=== PATIENT | male | born 1980 | race Caucasian/White ===

== ENCOUNTER 2023-08-20 13:36 | Emergency (ER) | payer OTHER, SELFPAY ==
--- NOTE | ~2023-08-20 | CT_ITS ---
EXAMINATION: CT abdomen pelvis w con DATE: 08/20/2023 20:57 INDICATION: Diffuse abdominal pain and pressure TECHNIQUE: Computed tomography (CT) of the abdomen and pelvis was performed without intravenous contr ast. The dose-length product was 1467.60 mGy-cm. Automated exposure control and iterative reconstruct ion technique were employed. COMPARISON: CT dated 09/08/2016. FINDINGS: Lung bases are unremarkable. Heart size normal. No significant pleural or pericardial effus ion. There are cholecystectomy clips. Fatty infiltration of the liver. The spleen, pancreas, adrenal glands and kidneys are unremarkable. Nonobstructive bowel gas pattern. Bladder is decompressed. Colon ic diverticulosis without evidence for diverticulitis. No free air or free fluid. No significant vasc ular abnormality. No lymphadenopathy. No acute osseous abnormality. IMPRESSION: 1. No acute abdominal abnormality. Reviewed, dictated and finalized at location A.
--- NOTE | ~2023-08-20 | XR_ITS ---
EXAMINATION: XR chest 2V 08/20/2023 18:47 INDICATION: Sudden shortness of breath PROCEDURE: 2 view chest COMPARISON: 07/06/2014 FINDINGS: The lungs are clear. The cardiomediastinal silhouette is within normal limits. There are no pleural effusions. There is no pneumothorax suspected. IMPRESSION: 1: NO ACUTE CARDIOPULMONARY DISEASE. Reviewed, dictated and finalized at location A.
[2023-08-20 13:55] VITALS: BP 140/89; PULSE 78; RESP 18; TEMP 36.6; O2SAT 97
[2023-08-20 17:20] VITALS: BP 131/86; PULSE 85; RESP 11; O2SAT 100
--- NOTE | 2023-08-20 18:28 | ECG_ITS ---
Measurements Intervals [place] Rate: 93 P: 51 OK: 149 QRS: -15 QRSD: 95 T: 30 QT: 338 QTc: 421 Interpretive Statements SINUS RHYTHM NONSPECIFIC T-WAVE ABNORMALITY Electronically Signed On 08-21-2023 17:10:56 CDT by Guillermo Zhou M.D.
[2023-08-20 19:35] LABS: Appearance Urine Cloudy (Clear); Bacteria Urine None Seen /hpf; Bilirubin Urine Negative (Negative); Blood Urine Negative (Negative); Color Urine Yellow (Yellow); Glucose Urine UA 3+ mg/dL (Negative); Ketones Urine Trace mg/dL (Negative); Leukocyte Esterase Ur Negative LEU/UL (Negative); Nitrate Urine Negative (Negative); Non Pathogenic Casts 0-2; Protein Urine Negative (Negative); RBC Urine 0-2 /hpf (0-2); Specific Grav Ur 1.019 (1.001-1.035); Squamous Epithelial Cell Urine None seen /hpf (Few); WBC Urine 0-5 /hpf
[2023-08-20] MEDS: BELLADONNA ALK/PHENOB ELIX 10 ML, MAG HYDROX/ALUMINUM HYD/SIMETH 30 ML, LIDOCAINE HCL 2... PO (19:37)
[2023-08-20 19:45] LABS: Add Urine Microscopic? YES
[2023-08-20 19:49] LABS: Basophils Absolute Auto 0.1 K/mm3 (0.0-0.1); Basophils Percent Auto 1.1 % (0.2-1.2); Eosinophils Absolute Auto 0.1 K/mm3 (0-0.3); Eosinophils Percent Auto 1.1 % (0-4.4); Hematocrit 43.2 % (42.0-52.0); Hemoglobin 15.1 g/dL (14.0-18.0); Immature Granulocyte Absolute 0.02 K/mm3 (0.00-0.031); Immature Granulocyte Percent A 0.2 % (0-0.5); Lymphocytes Absolute Auto 1.97 K/mm3 (0.9-3.2); Lymphocytes Percent Auto 22.6 % (18.3-44.2); Mean Corpuscular Volume 85.7 fl (80-100); Mean Platelet Volume 10.3 fl (7.4-10.4); Monocytes Absolute Auto 0.6 K/mm3 (0.1-0.6); Monocytes Percent Auto 7.1 % (2.6-8.5); Neutrophils Absolute Auto 5.9 K/mm3 (1.3-6.7); Neutrophils Percent Auto 67.9 % (45.5-73.1); Platelet Count Result 294 k/mm3 (150-375); Red Blood Count 5.04 M/mm3 (4.6-6.20); Red Cell Distribution Width 12.3 % (11.5-14.5); White Blood Count 8.7 K/mm3 (4.5-10.0)
[2023-08-20 20:00] LABS: Alanine Aminotransferase 42 U/L (6-50); Albumin Level 4.2 g/dL (3.5-5.1); Alkaline Phosphatase 61 U/L (38-126); Anion Gap 10 mmol/L (8-16); Aspartate Amino Transferase 30 U/L (17-59); Bilirubin,Total 1.1 mg/dL (0.2-1.3); Blood Urea Nitrogen 7 mg/dL (9-20); Calcium 8.8 mg/dL (8.4-10.2); Carbon Dioxide 26 mmol/L (22-30); Chloride 99 mmol/L (98-107); Estimated CRCL calculation 152 ml/min; Estimated Glomerular Filt Rate > 60; Glucose 227 mg/dL (65-110); Lipase 64 U/L (23-300); Potassium 3.2 mmol/L (3.4-5.0); Sodium 135 mmol/L (137-145)
[2023-08-20 20:10] LABS: Troponin I < 0.012 ng/mL (0.000-0.034)
--- NOTE | 2023-08-20 20:24 | ED.GENADULT ---
HPI - General Adult General Chief complaint: Shortness of Breath/Dyspnea Stated complaint: SOB, dizziness, back pain x abd tightness Time Seen by Provider: 08/20/23 17:51 Source: patient Mode of arrival: ambulatory Limitations: no limitations History of Present Illness HPI narrative: Patient is a 42-year-old male who presents to the ED with report of abdominal pain and shortness of breath. Patient reports he developed diffuse abdominal pain and mild shortness of breath last night which resolved on his own. He began having similar symptoms today which have been constant since then, worse with laying flat. He notes a history of IBS and states he often has gas pains but this feels different. He states he feels like there is increased pressure in his abdomen which is causing him to feel short of breath. Denies dyspnea with exertion. The pressure does occasionally radiate into his chest. He reports constipation, stating his last large bowel movement was over 1 week ago. He denies rectal bleeding, nausea, vomiting, fevers, pleuritic pain, cough or cold symptoms. Related Data Allergies Allergy/AdvReac Type Severity Reaction Status Date / Time divalproex sodium Allergy Mild Unknown Verified 08/20/23 13:59 Sulfa (Sulfonamide Allergy Mild RASH Verified 08/20/23 13:59 Antibiotics) Review of Systems Review of Systems: CONSTITUTIONAL: Denies fever, chills, or sweats. CARDIOVASCULAR: Denies chest pain. RESPIRATORY: See HPI. GASTROINTESTINAL: See HPI. GENITOURINARY: Denies dysuria or hematuria. MUSCULOSKELETAL: Denies back pain, joint pain, or myalgia. All systems reviewed & are unremarkable except as noted in HPI and below Exam Narrative: GENERAL: Mildly disheveled appearing, obese with BMI of 35.6, non-toxic, in no acute distress. HEAD: Normocephalic, atraumatic. NECK: Supple. No adenopathy, no masses. RESPIRATORY: Airway patent, respirations nonlabored. Clear to auscultation bilaterally, no rales, rhonchi, wheezing. CARDIOVASCULAR: Regular rate and rhythm without murmurs, rubs, or gallops. Radial pulses 2+ and equal bilaterally. ABDOMINAL: Soft, mild diffuse nonspecific tenderness to palpation throughout abdomen, more focal tenderness throughout epigastric region, nondistended, no hepatosplenomegaly. Mildly hypo-active BS. MUSCULOSKELETAL: Moves all extremities. Strength/ROM intact without gross deformities. No edema. SKIN: Warm, dry, normal color. No rashes. NEURO: A&O X3. Speech clear. Cranial nerves II-XII grossly intact. Steady gait. No ataxic movements. PSYCHIATRIC: Flat affect, somewhat avoids eye contact. Normal interaction. Course Vital Signs Vital signs: Vital Signs Temperature 97.8 F 08/20/23 13:55 Pulse Rate 78 08/20/23 13:55 Respiratory Rate 18 08/20/23 13:55 Blood Pressure 140/89 08/20/23 13:55 Pulse Oximetry 97 08/20/23 13:55 Oxygen Delivery Room Air 08/20/23 13:55 Temperature 97.8 F 08/20/23 13:55 Pulse Rate 85 08/20/23 17:20 Respiratory Rate 11 L 08/20/23 17:20 Blood Pressure 131/86 08/20/23 17:20 Pulse Oximetry 100 08/20/23 17:20 Oxygen Delivery Room Air 08/20/23 17:20 Medical Decision Making [facility] Narrative Medical decision making narrative: Patient presented to ED with diffuse abdominal pain, abdominal pressure feeling as though he is getting short of breath from the pressure. Vitals stable upon arrival. Patient in no acute distress. Mild tenderness to epigastric region, no other significant focal tenderness. History of IBS. Basic laboratory studies unremarkable. No leukocytosis. CMP with minimal hypokalemia at 3.2, replaced orally. Blood glucose mildly elevated. Patient is on medicine for diabetes. No anion gap. Normal bicarb. Normal LFTs and lipase. UA with trace ketones, no other signs of infection. EKG without ischemic changes. Troponin negative. Chest x-ray negative. CT abdomen pelvis obtained and without significant abnormalities.
[2023-08-20] MEDS: POTASSIUM CHLORIDE 20 MEQ PACKET (FOR LIQUID) 40 MEQ PO (20:38)
[2023-08-20] MEDS: SODIUM CHLORIDE 0.9% IV 1,000 ML 999 ML IV CONT (20:38)
== END 2023-08-20 22:56 | disposition home or self-care (01) ==
PROVIDERS: Emergency Provider Physician Assistant
DX: R10.84 Generalized abdominal pain (principal); K58.1 Irritable bowel syndrome with constipation; R94.31 Abnormal electrocardiogram [ECG] [EKG]
CPT/HCPCS: 36415; 71046; 74177; 80053; 81001; 83690; 84484; 85025; 93005; 96360; 96361; 99284; A9270; J7030; Q9967